=== PATIENT | female | born 1990 | race Caucasian/White ===

== ENCOUNTER 2017-01-23 20:22 | Emergency (ER) | payer BC ==
[2017-01-23 21:44] LABS: ABSOLUTE NEUTROPHIL COUNT 5.4 K/mm3 (1.8-7.7); BASO # 0.1 K/mm3 (0.0-0.2); BASO % 0.5 % (0.2-1.0); EOS # 0.2 (0.0-0.5); EOS % 1.7 % (0.9-2.9); HEMOGLOBIN 13.7 gm/l (12.0-16.0); IMM NEUT% 0.2 % (0-1); LYMPH # 3.1 (1.0-4.8); MEAN CORPUSCULAR HEMOGLOBIN 29.4 pg (27.0-31.0); MEAN CORPUSCULAR HGB CONC 33.4 g/dl (33.0-37.0); MEAN PLATELET VOLUME 10.1 fl (7.4-10.4); MONO # 0.9 (0.0-0.8); MONO % 9.2 % (4-12); NEUT % 56.4 % (43-75); PLATELET COUNT 253 K/mm3 (130-400); RED CELL DISTRIBUTION WIDTH 12.6 % (11.5-14.5)
--- NOTE | 2017-01-24 07:56 | US ---
Exam: Complete obstetric ultrasound less than 14 weeks COMPARISON: None INDICATION: Early , with vaginal bleeding. FINDINGS: Transabdominal and transvaginal obstetric ultrasound less than 14 weeks was obtained. There is a tiny, round anechoic structure within the endometrium which could potentially reflect a tiny gestational sac. Mean sac diameter is 5 mm which correlates with a gestational age of 4 weeks 2 days and a sonographic STALIN of 09/30/2017. Yolk sac or pole is not identified. Right ovary measures 3.1 x 3.9 x 3.0 cm and left ovary measures 2.3 x 1.5 x 1.2 cm. There is a right ovarian cyst which measures up to 3.8 cm. There is no separate adnexal mass. Blood flow is present within both ovaries. There is no significant free fluid in cul-de-sac. IMPRESSION: No definite sonographic evidence of an intrauterine although there is a small anechoic rounded collection within the endometrium which could reflect a very small gestational sac. If this does reflect a gestational sac, gestational age is 4 weeks 2 days and the sonographic STALIN of 09/30/2017. There is no sonographic evidence of an ectopic although this cannot be excluded. Recommend correlation with serial beta hCG and ultrasound as indicated. Preliminary report transmitted to the emergency department from [facility] at 2255 hours 01/23/2017.
== END 2017-01-23 23:13 | disposition home or self-care (01) ==
LOC: ED 20:22
DX: O20.0 Threatened abortion (principal); Z3A.01 Less than 8 weeks gestation of pregnancy